=== PATIENT | female | born 1935 | race Caucasian/White ===

== ENCOUNTER 2017-02-15 11:00 | Emergency (ER) | payer MEDICARE, OTHER ==
--- NOTE | ~2017-02-15 | ER ---
PATIENT'S NAME: JULIETA JULIO [facility] AGE: 81 Y [address] ROOM: [place] [address] LOCATION: [facility] ADMIT DATE: 02/15/2017 ER/Outpatient Report DISCHARGE DATE: 02/15/2017 FAMILY PHYSICIAN: Singh Treviño MD ATTENDING PHYSICIAN: Lazaro Baker CHIEF COMPLAINT: Fall and left rib pain. HISTORY OF PRESENT ILLNESS: The patient reports that she was at home today and had been taking a bath. She states that she was getting out of the bath and think she slipped on the floor and fell on her left side, and she has been having significant pain since then. She denies any other issues and is concerned that she "cracked her rib." She was brought in by a family friend today. She is living alone currently, however, that is not her standard living arrangement. Her is in the hospital. One of her children was also in the hospital recently. Her other daughters have been attending to their father in the hospital. In that she has been kind of alone currently. Collateral sources of information do reveal that the patient has relatively advanced dementia, but has been resistant to senior care cares and is otherwise functioning adequately at home, though it appears as though family does have some concerns for her. PAST MEDICAL HISTORY: Documented in the record and reviewed by me. SOCIAL HISTORY: Documented in the record and reviewed by me. MEDICATIONS: Documented in the record and reviewed by me. ALLERGIES: DOCUMENTED IN THE RECORD AND REVIEWED BY ME. REVIEW OF SYSTEMS: All systems were reviewed and negative except as noted in the HPI. PHYSICAL EXAMINATION: VITAL SIGNS: Blood pressure was initially 233/102, pulse is 64, respiratory rate is 20, temperature 97.8, and SpO2 is 96% on room air. Pain is rated at 10/10. GENERAL: Age-appropriate female, in no obvious distress with mild pain, sitting comfortably on the exam table in a semi-recumbent position. HEENT: Normocephalic and atraumatic. Eyes are PERRL. Oropharynx is clear. PATIENT'S NAME: JULIETA JULIO [facility] AGE: 81 Y [address] ROOM: [place] [id number] LOCATION: [facility] ADMIT DATE: 02/15/2017 ER/Outpatient Report DISCHARGE DATE: 02/15/2017 FAMILY PHYSICIAN: Singh Treviño MD ATTENDING PHYSICIAN: Lazaro Baker NECK: Supple. Trachea is midline. The neck has no tenderness whatsoever and there is full active and passive range of motion. CHEST: Heart is regular rate and rhythm with no murmurs. LUNGS: Clear to auscultation bilaterally with no rhonchi, wheezes, or rales. Of note, there is marked tenderness at the costochondral junction on the left side at approximately the 9th rib region. ABDOMEN: Notable for some tenderness over the left upper quadrant as well. There is otherwise normal benign abdominal exam. No rebound, guarding, or tenderness otherwise. SPINE: The remainder of the back is nontender to palpation. No CVA tenderness. EXTREMITIES: Warm and well perfused with no other obvious abnormalities or deformities or pain. SKIN: Warm, dry, and intact with no obvious bruising. LABORATORY DATA AND X-RAYS: Head CT is unremarkable. CT of the chest, abdomen, and pelvis does not have any acute osseous abnormalities per Radiology. I myself do not detect any osseous abnormalities or any solid organ injuries. The patient's CMS is without abnormality. CBC without abnormality. INR without abnormality. Lactate is 1.0. EKG reveals the patient is in sinus rhythm with a ventricular rate of 75 with a few PACs and first-degree heart block. No signs of acute ischemia or other dysrhythmia at this time. IMPRESSION: 1. Fall with left-sided rib contusions without fracture. 2. Uncontrolled hypertension. EMERGENCY DEPARTMENT COURSE: The patient was seen and evaluated as above. I do not find any alternative cause for her fall. There were no obvious physical injuries on her scans requiring intervention at this time. The patient is otherwise stable. She was observed for significant amount of time in the emergency department. She was given some fentanyl which markedly improved her pain. Her blood pressure did improve some, however, it is still very elevated. She was given some [place] with further improvement. She will be discharged to home to the care of her daughter, who will stay with her tonight and she is to see Dr. Felton tomorrow in clinic for further evaluation of her increased blood pressure at that time. The patient and family were made aware. She otherwise did well, what appeared to be walking at her baseline which is not a normal baseline, but is normal for her, and she was discharged in otherwise good condition with adequately controlled pain. PATIENT'S NAME: JULIETA JULIO [facility] AGE: 81 Y [address] ROOM: [place] [address] LOCATION: [facility] ADMIT DATE: 02/15/2017 ER/Outpatient Report DISCHARGE DATE: 02/15/2017 FAMILY PHYSICIAN: Singh Treviño MD ATTENDING PHYSICIAN: Lazaro Baker MD XAVI HAIR/modl /[id number] d: 02/16/17 1016 t: 02/27/17 1732, OUTPATIENT REPORT
[~2017-02-15 11:00] MED LIST: ALDACTONE25 MG PO; ATORVASTATIN CA40 MG PO; COZAAR25 MG PO; LEVOTHYROXINE75 MCG PO; NITROGLYCERIN0.2 MG TRANS; PAXIL10 MG PO; PROTONIX40 MG PO; REFRESH PLUS1 EACH OPHTH; VITAMIN D1000 UNIT PO; XARELTO10 MG PO
[2017-02-15 11:48] LABS: BASOPHIL # 0.1 K/uL (0.0-0.2); BASOPHIL % 0.6 %; EOSINOPHIL # 0.1 K/uL (0.0-0.5); EOSINOPHIL % 1.1 %; HEMOGLOBIN 14.7 g/dL (10.0-15.0); IMMATURE GRANULOCYTE % 0.3 %; LYMPHOCYTE # 1.4 K/uL (0.8-4.0); LYMPHOCYTE % 17.7 %; MCH 31.3 pg (27.0-34.0); MCHC 33.4 gm/dL (32.0-36.5); MCV 93.6 fl (83.0-98.0); MONOCYTE # 0.7 K/uL (0.0-1.0); MONOCYTE % 8.4 %; MPV 10.5 fl (9.4-12.4); NEUTROPHIL # (ANC) 5.7 K/uL (1.8-7.8); NEUTROPHIL % 71.9 %; NRBC % 0 /100WBC (0-0.00); PLATELET COUNT 222 K/uL (150-450); RDW-CV 13.2 % (11.9-14.6); WBC 7.9 K/uL (4.0-11.0)
[2017-02-15 11:55] LABS: INR - (THERAPEUTIC) 0.95 (0.92-1.07); PTT 25 SECONDS (25-32)
[2017-02-15 12:06] LABS: ALBUMIN 4.1 gm/dL (3.5-5.0); ANION GAP 14.2 (10.0-19.0); CALCIUM 9.6 mg/dL (8.5-10.5); CREATININE 0.9 mg/dL (0.5-1.1); POTASSIUM 4.2 mMol/L (3.7-5.1); TOTAL BILIRUBIN 0.9 mg/dL (0.0-1.5); TOTAL PROTEIN 7.5 g/dL (6.0-8.4)
== END 2017-02-15 14:03 | disposition disaster alternative care site (69) ==
LOC: GACC 11:00
PROVIDERS: Emergency Medicine
DX: S20.212A Contusion of left front wall of thorax, initial encounter (principal); I10 Essential (primary) hypertension; F03.90 Unspecified dementia, unspecified severity, without behavioral disturbance, psychotic disturbance, mood disturbance, and anxiety; E78.5 Hyperlipidemia, unspecified; D64.9 Anemia, unspecified; I48.91 Unspecified atrial fibrillation; I70.90 Unspecified atherosclerosis; Z79.899 Other long term (current) drug therapy; W18.11XA Fall from or off toilet without subsequent striking against object, initial encounter; Y93.E1 Activity, personal bathing and showering; Y92.012 Bathroom of single-family (private) house as the place of occurrence of the external cause
CPT/HCPCS: J3010